=== PATIENT | male | born 1970 | race Two or more races ===

== ENCOUNTER → 2016-05-20 | Outpatient (CLI) | payer OTHER ==
--- NOTE | 2016-05-25 23:31 | ECWPNPC ---
PATIENT NAME: NIRANJAN HOPKINS : 1970 GENDER: MALE VISIT DATE: 05/20/2016 DISCHARGE DATE: 05/20/16 1058 VISIT LOCKED DATE TIME: PHYSICIAN: FAHAD VENEGAS RESOURCE: FAHAD VENEGAS REASON FOR APPOINTMENT 1. SHOULDER PAIN HISTORY OF PRESENT ILLNESS FALL RISK SCREENING: SCREENING :NO FALLS IN THE PAST YEAR 46 YEAR OLD MALE PATIENT WITH HISTORY OF CHRONIC LEFT SHOULDER PAIN. PATIENT DESCRIBES THE PAIN SHARP AND HAVING IT ALL THE TIME WITH A PAIN SCORE OF 4-8/10. PATIENT REPORTS THAT THE PAIN STARTED IN 2003 DISLOCATED SHOULDER WHILE MOVING SCARP METAL WHILE WORKING IN THE . MR. HOPKINS REPORTS HAVING PAIN IN THE WHOLE SHOULDER AREA AND DOWN THE ARM. PATIENT HAS TRIED PHYSICAL THERAPY NUMEROUS TIME AND STATES THAT IT DOES NOT AID PAIN RELIEF MUCH HE WOULD LIKE. MR. HOPKINS USES A TENNS UNIT TO AID IN PAIN RELIEF. CURRENTLY THE PATIENT IS ONLY USING ALEVE TO AID IN PAIN RELIEF. FLEXERIL AND SKELAXIN DOES NOT AID IN PAIN RELIEF. OXYCODONE DID AID IN PAIN RELIEF AND WOULD ONLY USE NEEDED AND WOULD USE BEING 0MG TO 40 MG DEPENDING ON THE AMOUNT OF PAIN RELIEF WHILE IN [facility]. MR. HOPKINS ALSO RECEIVED AN INJECTION FROM THE ORTHOPEDIC GROUP ON [facility] AND STATED THAT HE ONLY GOT RELIEF IN THE BICEP AREA AND NOTHING IN THE JOINT AREA. PATIENT EXPRESSED HE WOULD LIKE TO TRY OTHER OPTIONS BEFORE MOVING FORWARD WITH A SURGERY. PATIENT DENIES UNEXPLAINABLE WEIGHT LOSS, FEVER, CHILLS, NEW CHANGES ON HIS URINARY OR BOWEL CONTROL. PAIN SCREENING: PATIENT HAS A COMPLAINT OF ACUTE OR CHRONIC PAIN :YES CURRENT MEDICATIONS TAKING ALEVE 220 MG CAPSULE ORALLY , NOTES: TAKES 500MG UP TO 4 X DAILY TAKING ASPIRIN ADULT LOW STRENGTH 81 MG TABLET DELAYED RELEASE 1 TABLET ORALLY ONCE A DAY MEDICATION LIST REVIEWED AND RECONCILED WITH THE PATIENT PAST MEDICAL HISTORY NO MEDICAL HISTORY. ALLERGIES N.K.D.A. SURGICAL HISTORY PRK, EYES 2003 FAMILY HISTORY FATHER: MOTHER: ALIVE 1 SON(S) - HEALTHY. SOCIAL HISTORY GENERAL: TOBACCO USE ARE YOU A:NONSMOKER ALCOHOL SCREENING POINTS2 INTERPRETATIONNEGATIVE RECREATIONAL DRUG USE DRUG USE?NO CAFFEINE CAFFEINE USE?YES HOW OFTEN AND HOW MUCH? COFFEE ON A DAILY BASIS LEARNING BARRIERS / SPECIAL NEEDS BARRIERS TO LEARNING?NO HEARING IMPAIRED?NO LEARNING PREFERENCES?NO PAIN CLINIC PFS, CLERGY, PUBLIC HEALTH REFERRALS CLERGY REFERRAL NEEDED?NO WAS THE PROVIDER NOTIFIED OF ANY PERTINENT INFO?NO PFS REFERRAL NEEDED?NO PUBLIC HEALTH REFERRAL NEEDED?NO PATIENT: ____. ADVANCED DIRECTIVES HEALTH CARE PROXY?NO WOULD YOU LIKE MORE INFORMATION?NO HOSPITALIZATION/MAJOR DIAGNOSTIC PROCEDURE DENIES PAST HOSPITALIZATION REVIEW OF SYSTEMS CONSTITUTIONAL: ANY CHANGE IN YOUR MEDICAL CONDITION? NO . CHILLS NO . FEVER NO . INFECTION: DO YOU HAVE NEW INFECTIONS? NO . DO YOU HAVE HISTORY OF MRSA? NO . MUSCULOSKELETAL: ANY NEW PATTERNS OF PAIN OR NUMBNESS? NO . SYTEMIC LUPUS NO . GASTROENTEROLOGY: ANY NEW CHANGE IN BOWEL CONTROL? NO . BARRETTS ESOPHAGUS NO . CIRRHOSIS NO . HEPATITIS NO . LIVER FAILURE NO . ACID REFLUX NO . UNEXPLAINED WEIGHT LOSS NO . GENITOURINARY: ANY NEW CHANGE IN BLADDER CONTROL? NO . IS THERE A CHANCE YOU COULD BE ? NO . HEMATOLOGY/LYMPH: DO YOU TAKE ANY BLOOD THINNERS? (FOR EXAMPLE- COUMADIN, PLAVIX, AGGRENOX, PLATEL, PRADAXA, OR XARELTO) NO . WHEN WAS YOUR LAST DOSE? DATE: TIME: . LOW PLATELET COUNT NO . SICKLE CELL DISEASE NO . VON WILLIEBRANDS NO . FACTOR V LEIDEN NO . THALLASEMIA NO . ANEMIA NO . EASY BRUISING NO . NEUROLOGY: HAVE YOU FALLEN IN THE PAST 6 MONTHS? NO . ANY NEW EXTREMITY NUMBNESS OR WEAKNESS? NO . HEAD INJURY NO . DEMENTIA NO . CEREBRAL PALSY NO . MULTIPLE SCLEROSIS NO . DIZZINESS NO . HEADACHE NO . STROKES NO . VERTIGO NO . CARDIOLOGY: DO YOU HAVE A PACEMAKER OR DEFIBRILLATOR? NO . ANGINA NO . HEART ATTACK NO . HEART SURGERY NO . CONGESTIVE HEART FAILURE/FLUID OVERLOAD NO . CHEST PAIN NO . HIGH BLOOD PRESSURE NO . IRREGULAR HEART BEAT NO . RESPIRATORY: HAVE YOU BEEN SICK IN THE PAST WEEK? NO . FEVER NO . FLU LIKE SYMPTOMS? NO . CPAP NO . BYPAP NO . ASTHMA NO . EMPHYSEMA NO . CHRONIC LUNG DISEASES NO . SHORTNESS OF BREATH ON EXERTION NO . COUGH NO . SNORING NO . INTEGUMENTARY: DO YOU HAVE ANY RASHES OR OPEN SORES? NO . ALLERGIC/IMMUNO: ARE YOU ALLERGIC TO SHELLFISH OR IV DYE? NO . ANY NEW ALLERGIES? NO . PSYCHIATRIC: DO YOU HAVE THOUGHTS OF HURTING YOURSELF OR SOMEONE ELSE? NO . ARE YOU ABUSED, NEGLECTED, OR IN AN UNSAFE ENVIRONMENT? NO . ENDOCRINOLOGY: ARE YOU DIABETIC? NO . THYROID DISORDER NO . OTHER: DO YOU NEED ANY PRESCRIPTIONS? NO . IF YES, PLEASE LIST: ____ . ANY NEW PROBLEMS WITH YOUR MEDICATIONS? NO . WHEN DID YOU LAST EAT? ____ . WHEN DID YOU LAST DRINK? ____ . WHAT DID YOU LAST DRINK? ____ . NAME OF PERSON DRIVING YOU HOME? ____ . DO YOU HAVE ANY OTHER QUESTIONS OR CONCERNS NO . REVIEWED BY: PROVIDER: FAHAD VENEGAS MD . VITAL SIGNS WT 215.8 LBS, HT 77 IN, BMI 25.59 INDEX, BP 120/67 MM HG, HR 69 /MIN, RR 18 /MIN, TEMP 98.7 F, OXYGEN SAT % 100%, NA INITIALS SC09:15, REVIEWED BY: CM. EXAMINATION : PATIENT IS ALERT O X 3 AND COOPERATIVE. PATIENT ABLE TO ABDUCT RIGHT ARM AND LEFT ARM TO SHOULDER LEVEL. 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 TENDERNESS THROUGHOUT THE ENTIRE ROTATOR AREA INCLUDING THE BACK. MRI DONE ON 12/18/14 OF THE LEFT SHOULDER SHOWS A POSSIBLE BONY BANKART AND A CALCIFICATION OR MINERALIZTION WITHIN THE INFERIOR AXILLARY POUCH. ASSESSMENTS LEFT SHOULDER PAIN. TREATMENT OTHERS NOTES: WE DISCUSSED SEVERAL ISSUES WITH MR. HOPKINS'S PAIN MANAGEMENT CASE. AT THIS TIME THE PATIENT WILL CONTINUE TO USE ALEVE FOR PAIN MANAGEMENT. WE DISCUSSED WAYS TO AID IN PAIN RELIEF OVER THEN DOING THE SHOULDER SURGERY. WE BRIEFLY DISCUSSED THE POSSIBILITY OF IMPLANTING A SCS AND THE PATIENT LEFT WITH MATERIAL FROM [employer], [facility] [employer]. MR. HOPKINS WAS ADVISED TO SPEAK WITH HIS ORTHOPEDIC SURGEON ABOUT THE SCS WELL. PATIENT WILL RETURN TO THE CLINIC IN A FEW DAYS TO DISCUSS MEDICATION MANAGEMENT. I WOULD LIKE TO SPEAK WITH THE PATIENTS PRIMARY CARE BEFORE MOVING FORWARD WITH PRESCRIBING MEDICATIONS FOR THE PATIENT. , INSTRUCTIONS WERE GIVEN, QUESTIONS WERE ANSWERED, PATIENT REPORTS UNDERSTANDING AND AGREES WITH THE PLAN. I, LULU SOUSA, DOCUMENTED THE ABOVE INFORMATION ACTING A SCRIBE FOR DR. VENEGAS. I HAVE REVIEWED THE ABOVE DOCUMENT, WRITTEN BY LULU [facility] AND I VERIFY THAT IT IS ACCURATE. DEAR PATRICK RODRIGUEZ: THANK YOU FOR YOUR KIND REFERRAL OF MR. HOPKINS. YOU WANT TO DISCUSS HER CASE WITH ME PLEASE CALL ME AT THE PAIN CENTER AT [phone]. SINCERELY, FAHAD VENEGAS MD PAIN MEDICINE. PROCEDURE CODES G8427 DOC MEDS VERIFIED W/PT OR RE G8730 PAIN ASSESS POS TOOL F/U PLAN DOC FA211 ESTABILISHED PATIENT [facility] CHARGE DISPOSITION & COMMUNICATION FOLLOW UP 2 - 3 DAYS ELECTRONICALLY SIGNED BY FAHAD VENEGAS MD ON 05/25/2016 AT 09:17 PM EDT DISCLAIMER : THIS IS A VISIT SUMMARY EXTRACTED FROM THE [employer] CHART. IT IS NOT A COPY OF THE [employer] PROGRESS NOTE. MTDD
== END ==
LOC: M PAIN 08:40
PROVIDERS: ATTEND Anesthesiology
DX: G89.29 Other chronic pain (principal); M25.512 Pain in left shoulder; Z79.1 Long term (current) use of non-steroidal anti-inflammatories (NSAID); Z79.82 Long term (current) use of aspirin

== ENCOUNTER → 2016-05-21 | Outpatient (CLI) | payer OTHER ==
--- NOTE | 2016-06-01 23:08 | ECWPNPC ---
PATIENT NAME: NIRANJAN HOPKINS : 1970 GENDER: MALE VISIT DATE: 05/21/2016 DISCHARGE DATE: 05/21/16 1722 VISIT LOCKED DATE TIME: PHYSICIAN: FAHAD VENEGAS RESOURCE: FAHAD VENEGAS REASON FOR APPOINTMENT 1. SHOULDER PAIN HISTORY OF PRESENT ILLNESS HISTORY OF PRESENT ILLNESS: PAIN THE PATIENT DESCRIBES THE PAIN... 46 YEAR OLD MALE PATIENT WITH HISTORY OF CHRONIC LEFT SHOULDER PAIN. PATIENT DESCRIBES THE PAIN SHARP, SHOOTING, AND HAVING IT ALL THE TIME WITH A PAIN SCORE OF 3-8/10 ON TODAY'S VISIT. PATIENT REPORTS THAT THE PAIN STARTED IN 2003 DISLOCATED SHOULDER WHILE MOVING SCARP METAL WHILE WORKING IN THE . PATIENT REPORTS THAT HIS PAIN INCREASES HIS ACTIVITY LEVEL GOES UP. PATIENT REPORTS OF TAKING ALEVE TO TRY TO HELP WITH THE PAIN. PATIENT DENIES UNEXPLAINABLE WEIGHT LOSS, FEVER, CHILLS, NEW CHANGES ON HIS URINARY OR BOWEL CONTROL. FALL RISK SCREENING: SCREENING :NO FALLS IN THE PAST YEAR CURRENT MEDICATIONS TAKING ALEVE 220 MG CAPSULE ORALLY , NOTES: TAKES 500MG UP TO 4 X DAILY TAKING ASPIRIN ADULT LOW STRENGTH 81 MG TABLET DELAYED RELEASE 1 TABLET ORALLY ONCE A DAY MEDICATION LIST REVIEWED AND RECONCILED WITH THE PATIENT PAST MEDICAL HISTORY NO MEDICAL HISTORY. ALLERGIES N.K.D.A. SURGICAL HISTORY PRK, EYES 2002 FAMILY HISTORY FATHER: MOTHER: ALIVE 1 SON(S) - HEALTHY. SOCIAL HISTORY GENERAL: PAIN CLINIC PFS, CLERGY, PUBLIC HEALTH REFERRALS PFS REFERRAL NEEDED?NO CLERGY REFERRAL NEEDED?NO PUBLIC HEALTH REFERRAL NEEDED?NO WAS THE PROVIDER NOTIFIED OF ANY PERTINENT INFO?YES PATIENT: ____. HOSPITALIZATION/MAJOR DIAGNOSTIC PROCEDURE NO HOSPITALIZATION HISTORY. REVIEW OF SYSTEMS CONSTITUTIONAL: ANY CHANGE IN YOUR MEDICAL CONDITION? NO . CHILLS NO . FEVER NO . INFECTION: DO YOU HAVE NEW INFECTIONS? NO . DO YOU HAVE HISTORY OF MRSA? NO . MUSCULOSKELETAL: ANY NEW PATTERNS OF PAIN OR NUMBNESS? NO . GASTROENTEROLOGY: ANY NEW CHANGE IN BOWEL CONTROL? NO . GENITOURINARY: ANY NEW CHANGE IN BLADDER CONTROL? NO . IS THERE A CHANCE YOU COULD BE ? NO . HEMATOLOGY/LYMPH: DO YOU TAKE ANY BLOOD THINNERS? (FOR EXAMPLE- COUMADIN, PLAVIX, AGGRENOX, PLATEL, PRADAXA, OR XARELTO) NO . WHEN WAS YOUR LAST DOSE? DATE: TIME: . NEUROLOGY: HAVE YOU FALLEN IN THE PAST 6 MONTHS? NO . ANY NEW EXTREMITY NUMBNESS OR WEAKNESS? NO . CARDIOLOGY: DO YOU HAVE A PACEMAKER OR DEFIBRILLATOR? NO . RESPIRATORY: HAVE YOU BEEN SICK IN THE PAST WEEK? NO . FEVER NO . FLU LIKE SYMPTOMS? NO . COUGH NO . INTEGUMENTARY: DO YOU HAVE ANY RASHES OR OPEN SORES? NO . ALLERGIC/IMMUNO: ARE YOU ALLERGIC TO SHELLFISH OR IV DYE? NO . ANY NEW ALLERGIES? NO . PSYCHIATRIC: DO YOU HAVE THOUGHTS OF HURTING YOURSELF OR SOMEONE ELSE? NO . ARE YOU ABUSED, NEGLECTED, OR IN AN UNSAFE ENVIRONMENT? NO . ENDOCRINOLOGY: ARE YOU DIABETIC? NO . OTHER: DO YOU NEED ANY PRESCRIPTIONS? NO . IF YES, PLEASE LIST: ____ . ANY NEW PROBLEMS WITH YOUR MEDICATIONS? NO . WHEN DID YOU LAST EAT? ____ . WHEN DID YOU LAST DRINK? ____ . WHAT DID YOU LAST DRINK? ____ . NAME OF PERSON DRIVING YOU HOME? ____ . DO YOU HAVE ANY OTHER QUESTIONS OR CONCERNS NO . REVIEWED BY: PROVIDER: FAHAD VENEGAS MD . VITAL SIGNS WT 215.8 LBS, HT 77 IN, BMI 25.59 INDEX, BP 126/71 MM HG, HR 62 /MIN, RR 16 /MIN, TEMP 98.1 F, OXYGEN SAT % 99%, SAFE IN ENV? (Y/N) Y, NA INITIALS TL 1540, REVIEWED BY: CRISTINE. EXAMINATION : PATIENT IS ALERT O X 3 AND COOPERATIVE. PATIENT ABLE TO ABDUCT RIGHT ARM AND LEFT ARM TO SHOULDER LEVEL. 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 TENDERNESS THROUGHOUT THE ENTIRE ROTATOR AREA INCLUDING THE BACK. MRI DONE ON 12/18/14 OF THE LEFT SHOULDER SHOWS A POSSIBLE BONY BANKART AND A CALCIFICATION OR MINERALIZATION WITHIN THE INFERIOR AXILLARY POUCH. ASSESSMENTS PAIN IN LEFT SHOULDER - M25.512 (PRIMARY) PRIMARY OSTEOARTHRITIS, LEFT SHOULDER - M19.012, PER REFERRAL TREATMENT PAIN IN LEFT SHOULDER NOTES: WE DISCUSSED SEVERAL ISSUES WITH MR. HOPKINS'S PAIN MANAGEMENT CASE. I WILL HAVE THE PATIENT SIGN A NARCOTIC AGREEMENT TODAY. I WILL HAVE THE PATIENT START ON GABAPENTIN AND HYDROCODONE TODAY. DISCUSSED WITH THE PATIENT THAT HE NEEDS TO BRING HIS MEDICATIONS TO EVERY FOLLOW UP. I WILL ORDER A UTOX ON THE NEXT VISIT. INFORMED THE PATIENT THAT I NEED TO REACH AN AGREEMENT WITH HIS PRIMARY ABOUT MEDICATION MANAGEMENT, AND TO CONTACT HIS PRIMARY TO GIVE US A CALL. PATIENT WILL FOLLOW UP WITH ME IN 2 WEEKS. INSTRUCTIONS WERE GIVEN, QUESTIONS WERE ANSWERED, PATIENT REPORTS UNDERSTANDING AND AGREES WITH THE PLAN. I, CARMENZA BUCKLEY, DOCUMENTED THE ABOVE INFORMATION ACTING A SCRIBE FOR DR. VENEGAS. I HAVE REVIEWED THE ABOVE DOCUMENT, WRITTEN BY CARMENZA BUCKLEY SCRIBE AND I VERIFY THAT IT IS ACCURATE. OTHERS START GABAPENTIN CAPSULE, 300 MG, 1 CAPSULE, ORALLY, BEFORE BEDTIME FOR PAIN, 30 DAY(S), 30, REFILLS 1 START HYDROCODONE-ACETAMINOPHEN TABLET, 5-325 MG, 1 TABLET NEEDED, ORALLY, EVERY 6 HRS PRN FOR PAIN MDD2, 14 DAY(S), 25, REFILLS 0 PROCEDURE CODES FA211 ESTABILISHED PATIENT [facility] FACILITY CHARGE G8730 PAIN ASSESS POS TOOL F/U PLAN DOC G8427 DOC MEDS VERIFIED W/PT OR RE DISPOSITION & COMMUNICATION FOLLOW UP 2 WEEKS ELECTRONICALLY SIGNED BY FAHAD VENEGAS MD ON 06/01/2016 AT 05:39 PM EDT DISCLAIMER : THIS IS A VISIT SUMMARY EXTRACTED FROM THE [employer] CHART. IT IS NOT A COPY OF THE [employer] PROGRESS NOTE. JAZ
== END ==
LOC: M PAIN 15:20
PROVIDERS: ATTEND Anesthesiology
DX: Z09 Encounter for follow-up examination after completed treatment for conditions other than malignant neoplasm (principal); G89.29 Other chronic pain; M25.512 Pain in left shoulder; M19.012 Primary osteoarthritis, left shoulder; Z79.1 Long term (current) use of non-steroidal anti-inflammatories (NSAID); Z79.82 Long term (current) use of aspirin

== ENCOUNTER → 2016-08-01 | Outpatient (CLI) | payer OTHER ==
--- NOTE | 2016-08-08 23:48 | ECWPNPC ---
PATIENT NAME: NIRANJAN HOPKINS : 1970 GENDER: MALE VISIT DATE: 08/01/2016 DISCHARGE DATE: 08/01/16 1630 VISIT LOCKED DATE TIME: PHYSICIAN: FAHAD VENEGAS RESOURCE: FAHAD VENEGAS REASON FOR APPOINTMENT 1. BACK PAIN HISTORY OF PRESENT ILLNESS HISTORY OF PRESENT ILLNESS: PAIN THE PATIENT DESCRIBES THE PAIN... 46 YEAR OLD MALE PATIENT WITH HISTORY OF CHRONIC LEFT SHOULDER AND LOW BACK PAIN. PATIENT DESCRIBES THE PAIN SHARP, STABBING, THROBBING, SHOOTING, AND IT COMES AND GOES WITH A PAIN SCORE OF 3-5/10 ON TODAY'S VISIT. PATIENT REPORTS OF RADIATING PAIN DOWN THE FRONT OF HIS THIGHS FROM HIS BACK. PATIENT REPORTS OF BACK AND LEFT SHOULDER PAIN, BUT HIS BACK HURTS THE MOST TODAY. PATIENT STATES THAT HE IS NOT INTERESTED IN INJECTIONS AT THIS TIME. PATIENT DENIES UNEXPLAINABLE WEIGHT LOSS, FEVER, CHILLS, NEW CHANGES ON HIS URINARY OR BOWEL CONTROL. FALL RISK SCREENING: SCREENING :NO FALLS IN THE PAST YEAR CURRENT MEDICATIONS TAKING HYDROCODONE-ACETAMINOPHEN 5-325 MG TABLET 1 TABLET NEEDED ORALLY EVERY 6 HRS PRN FOR PAIN MDD2, NOTES: NOT WORKING TAKING ALEVE 220 MG CAPSULE ORALLY , NOTES: TAKES 500MG UP TO 4 X DAILY TAKING ASPIRIN ADULT LOW STRENGTH 81 MG TABLET DELAYED RELEASE 1 TABLET ORALLY ONCE A DAY NOT-TAKING GABAPENTIN 300 MG CAPSULE 1 CAPSULE ORALLY BEFORE BEDTIME FOR PAIN MEDICATION LIST REVIEWED AND RECONCILED WITH THE PATIENT PAST MEDICAL HISTORY NONE ALLERGIES N.K.D.A. REVIEW OF SYSTEMS REVIEWED BY: PROVIDER: . CONSTITUTIONAL: ANY CHANGE IN YOUR MEDICAL CONDITION? NO . CHILLS NO . FEVER NO . INFECTION: DO YOU HAVE NEW INFECTIONS? NO . DO YOU HAVE HISTORY OF MRSA? NO . MUSCULOSKELETAL: ANY NEW PATTERNS OF PAIN OR NUMBNESS? NO . GASTROENTEROLOGY: ANY NEW CHANGE IN BOWEL CONTROL? NO . GENITOURINARY: ANY NEW CHANGE IN BLADDER CONTROL? NO . IS THERE A CHANCE YOU COULD BE ? NO . HEMATOLOGY/LYMPH: DO YOU TAKE ANY BLOOD THINNERS? (FOR EXAMPLE- COUMADIN, PLAVIX, AGGRENOX, PLATEL, PRADAXA, OR XARELTO) NO . WHEN WAS YOUR LAST DOSE? DATE: TIME: . NEUROLOGY: HAVE YOU FALLEN IN THE PAST 6 MONTHS? NO . ANY NEW EXTREMITY NUMBNESS OR WEAKNESS? NO . CARDIOLOGY: DO YOU HAVE A PACEMAKER OR DEFIBRILLATOR? NO . RESPIRATORY: HAVE YOU BEEN SICK IN THE PAST WEEK? NO . FEVER NO . FLU LIKE SYMPTOMS? NO . COUGH NO . INTEGUMENTARY: DO YOU HAVE ANY RASHES OR OPEN SORES? NO . ALLERGIC/IMMUNO: ARE YOU ALLERGIC TO SHELLFISH OR IV DYE? NO . ANY NEW ALLERGIES? NO . PSYCHIATRIC: DO YOU HAVE THOUGHTS OF HURTING YOURSELF OR SOMEONE ELSE? NO . ARE YOU ABUSED, NEGLECTED, OR IN AN UNSAFE ENVIRONMENT? NO . ENDOCRINOLOGY: ARE YOU DIABETIC? NO . OTHER: DO YOU NEED ANY PRESCRIPTIONS? NO . IF YES, PLEASE LIST: ____ . ANY NEW PROBLEMS WITH YOUR MEDICATIONS? NO . WHEN DID YOU LAST EAT? ____ . WHEN DID YOU LAST DRINK? ____ . WHAT DID YOU LAST DRINK? ____ . NAME OF PERSON DRIVING YOU HOME? ____ . DO YOU HAVE ANY OTHER QUESTIONS OR CONCERNS NO . VITAL SIGNS WT 220.4 LBS, HT 77 IN, BMI 26.13 INDEX, BP 144/70 MM HG, HR 65 /MIN, RR 16 /MIN, TEMP 98.7 F, OXYGEN SAT % 96%, REVIEWED BY: KG. EXAMINATION : PATIENT IS ALERT O X 3 AND COOPERATIVE. THERE IS TENDERNESS IN THE LOW BACK PARASPINAL MUSCLE GROUP. PATIENT'S LEFT LEG IS WEAKER AT FLEXION AND EXTENSION COMPARED TO THE RIGHT LEG. MRI OF THE LUMBAR SPINE DONE ON 05-02-2016 SHOWS FACET ARTHROPATHY CHANGES AND MILD STENOSIS AT MULTIPLE LEVELS, AND A BULGING DISC AT L4-L5 AND L5-S1. ASSESSMENTS LOW BACK PAIN - M54.5 (PRIMARY) TREATMENT LOW BACK PAIN NOTES: WE DISCUSSED SEVERAL ISSUES WITH MR. HOPKINS'S PAIN MANAGEMENT CASE. AT THIS TIME I WILL HAVE THE PATIENT START ON CYMBALTA AND CODEINE SULFATE. I DISCUSSED WITH THE PATIENT THAT HE IS A GOOD CANDIDATE FOR A LUMBAR EPIDURAL. PATIENT STATES THAT HE IS NOT INTERESTED IN INJECTIONS AT THIS TIME AND WOULD LIKE TO PROCEED WITH MEDICATION MANAGEMENT. PATIENT WILL FOLLOW UP WITH ME IN 3 WEEKS. INSTRUCTIONS WERE GIVEN, QUESTIONS WERE ANSWERED, PATIENT REPORTS UNDERSTANDING AND AGREES WITH THE PLAN. I, CARMENZA BUCKLEY, DOCUMENTED THE ABOVE INFORMATION ACTING A SCRIBE FOR DR. VENEGAS. I HAVE REVIEWED THE ABOVE DOCUMENT, WRITTEN BY CARMENZA BOSTON AND I VERIFY THAT IT IS ACCURATE. OTHERS START CYMBALTA CAPSULE DELAYED RELEASE PARTICLES, 30 MG, 1 CAPSULE, ORALLY WITH FOOD, TWICE A DAY, 30 DAY(S), 60, REFILLS 1 START CODEINE SULFATE TABLET, 30 MG, 1 TABLET NEEDED, ORALLY, EVERY 4 HRS FOR PAIN MDD3, 30 DAY(S), 30, REFILLS 0 PROCEDURE CODES FA211 ESTABILISHED PATIENT LOCATED WITHIN [facility] CHARGE G8730 PAIN ASSESS POS TOOL F/U PLAN DOC G8427 DOC MEDS VERIFIED W/PT OR RE DISPOSITION & COMMUNICATION FOLLOW UP 3 WEEKS ELECTRONICALLY SIGNED BY FAHAD VENEGAS MD ON 08/08/2016 AT 12:41 PM EDT DISCLAIMER : THIS IS A VISIT SUMMARY EXTRACTED FROM THE [employer] CHART. IT IS NOT A COPY OF THE [employer] PROGRESS NOTE. MTDD
== END ==
LOC: M PAIN 14:40
PROVIDERS: ATTEND Anesthesiology
DX: G89.29 Other chronic pain (principal); M54.5 Low back pain; M25.512 Pain in left shoulder; Z79.891 Long term (current) use of opiate analgesic; Z79.899 Other long term (current) drug therapy; Z79.82 Long term (current) use of aspirin

== ENCOUNTER → 2016-08-22 | Outpatient (CLI) | payer OTHER ==
--- NOTE | 2016-09-03 03:24 | ECWPNPC ---
PATIENT NAME: NIRANJAN HOPKINS : 1970 GENDER: MALE VISIT DATE: 08/22/2016 DISCHARGE DATE: 08/22/16 1132 VISIT LOCKED DATE TIME: PHYSICIAN: MEL ALEXANDRE RESOURCE: MEL ALEXANDRE REASON FOR APPOINTMENT 1. BACK AND SHOULDER CURRENT MEDICATIONS TAKING HYDROCODONE-ACETAMINOPHEN 5-325 MG TABLET 1 TABLET NEEDED ORALLY EVERY 6 HRS PRN FOR PAIN MDD2, NOTES: NOT WORKING TAKING ASPIRIN ADULT LOW STRENGTH 81 MG TABLET DELAYED RELEASE 1 TABLET ORALLY ONCE A DAY TAKING CODEINE SULFATE 30 MG TABLET 1 TABLET NEEDED ORALLY EVERY 4 HRS FOR PAIN MDD3 NOT-TAKING ALEVE 220 MG CAPSULE ORALLY , NOTES: TAKES 500MG UP TO 4 X DAILY NOT-TAKING CYMBALTA 30 MG CAPSULE DELAYED RELEASE PARTICLES 1 CAPSULE ORALLY WITH FOOD TWICE A DAY NOT-TAKING GABAPENTIN 300 MG CAPSULE 1 CAPSULE ORALLY BEFORE BEDTIME FOR PAIN MEDICATION LIST REVIEWED AND RECONCILED WITH THE PATIENT PAST MEDICAL HISTORY NONE DISLOCATION OF LEFT SHOULDER 2003 ALLERGIES N.K.D.A. SURGICAL HISTORY PRK, EYES 2002 FAMILY HISTORY FATHER: MOTHER: ALIVE 1 SON(S) - HEALTHY. VITAL SIGNS WT 310 LBS, HT 77 IN, BMI 36.76 INDEX, BP 129/67 MM HG, HR 65 /MIN, RR 16 /MIN, TEMP 98.8 F, OXYGEN SAT % 96%, NA INITIALS AW 1047. EXAMINATION GENERAL EXAMINATION: GENERAL APPEARANCE:COMFORTABLE,AWAKE AND ALERT. PSYCHORIENTED TO PERSON, ORIENTED TO PLACE, ORIENTED TO TIME. LUNGS:LUNG PETERS ARE CLEAR TO AUSCULTATION BILATERALLY. GOOD MOVEMENT OF AIR. HEART:S1, S2 IN A REGULAR RATE AND RHYTHM. NO SIGNIFICANT MURMURS, RUBS OR GALLOPS NOTED. LUMBAR SPINE/LOWER BACK: PALPATION:PARASPINAL TENDERNESS, VERTEBRAL SPINE TENDERNESS. MOTOR SYSTEM:SLIGHTLY WEAKER R>L. SENSORY EXAM:NORMAL BILATERAL LE. REFLEXES:2/4 AND SYMMETRIC BLE. ASSESSMENTS LOW BACK PAIN - M54.5 (PRIMARY) PRIMARY OSTEOARTHRITIS, LEFT SHOULDER - M19.012, PER REFERRAL TREATMENT LOW BACK PAIN STOP HYDROCODONE-ACETAMINOPHEN TABLET, 5-325 MG, 1 TABLET NEEDED, ORALLY, EVERY 6 HRS PRN FOR PAIN MDD2, NOTES: NOT WORKING STOP CODEINE SULFATE TABLET, 30 MG, 1 TABLET NEEDED, ORALLY, EVERY 4 HRS FOR PAIN MDD3 START OXYCODONE HCL TABLET, 5 MG, 1/2TAB-1TAB, ORALLY, Q6H PRN MDD4, 30 DAY(S), 120, REFILLS 0 PROCEDURE CODES FA211 ESTABILISHED PATIENT [facility] CHARGE DISPOSITION & COMMUNICATION FOLLOW UP 4 WEEKS ELECTRONICALLY SIGNED BY KATHARINE WHLAEN ON 09/02/2016 AT 03:48 PM EDT DISCLAIMER : THIS IS A VISIT SUMMARY EXTRACTED FROM THE [employer] CHART. IT IS NOT A COPY OF THE [employer] PROGRESS NOTE. MTDD
== END ==
LOC: M PAIN 10:00
PROVIDERS: ATTEND Nurse Practitioner Family
DX: G89.29 Other chronic pain (principal); M54.5 Low back pain; M19.012 Primary osteoarthritis, left shoulder; Z79.82 Long term (current) use of aspirin; Z79.891 Long term (current) use of opiate analgesic; Z79.899 Other long term (current) drug therapy

== ENCOUNTER → 2016-12-11 | Outpatient (CLI) | payer OTHER ==
--- NOTE | 2016-12-28 23:44 | ECWPNPC ---
PATIENT NAME: NIRANJAN HOPKINS : 1970 GENDER: MALE VISIT DATE: 12/11/2016 DISCHARGE DATE: 12/11/161748 VISIT LOCKED DATE TIME: PHYSICIAN: FAHAD VENEGAS RESOURCE: FAHAD VENEGAS REASON FOR APPOINTMENT 1. SHOULDER PAIN HISTORY OF PRESENT ILLNESS GENERAL: 46 YEAR OLD MALE PATIENT WITH HISTORY OF CHRONIC LEFT SHOULDER AND LOW BACK PAIN. PATIENT DESCRIBES THE PAIN SHARP, STABBING, THROBBING, SHOOTING, AND IT COMES AND GOES WITH A PAIN SCORE OF 3-8/10 ON TODAY'S VISIT. PATIENT REPORTS OF RADIATING PAIN DOWN THE FRONT OF HIS THIGHS FROM HIS BACK. PATIENT REPORTS OF BACK AND LEFT SHOULDER PAIN, BUT HIS BACK HURTS THE MOST TODAY. PATIENT STATES THAT HE IS NOT INTERESTED IN INJECTIONS AT THIS TIME. PATIENT DENIES UNEXPLAINABLE WEIGHT LOSS, FEVER, CHILLS, NEW CHANGES ON HIS URINARY OR BOWEL CONTROL. CURRENT MEDICATIONS TAKING OXYCODONE HCL 5 MG TABLET 1/2TAB-1TAB ORALLY Q6H PRN MDD4 NOT-TAKING ALEVE 220 MG CAPSULE ORALLY , NOTES: TAKES 500MG UP TO 4 X DAILY NOT-TAKING CYMBALTA 30 MG CAPSULE DELAYED RELEASE PARTICLES 1 CAPSULE ORALLY WITH FOOD TWICE A DAY NOT-TAKING GABAPENTIN 300 MG CAPSULE 1 CAPSULE ORALLY BEFORE BEDTIME FOR PAIN NOT-TAKING ASPIRIN ADULT LOW STRENGTH 81 MG TABLET DELAYED RELEASE 1 TABLET ORALLY ONCE A DAY MEDICATION LIST REVIEWED AND RECONCILED WITH THE PATIENT PAST MEDICAL HISTORY NONE DISLOCATION OF LEFT SHOULDER 2004 ALLERGIES N.K.D.A. FAMILY HISTORY FATHER: 78 YRS MOTHER: ALIVE 77 YRS 1 SON(S) - HEALTHY. SOCIAL HISTORY GENERAL: TOBACCO USE ARE YOU A:NONSMOKER CAFFEINE CAFFEINE USE?YES HOW OFTEN AND HOW MUCH? 3 CUPS PER DAY LEARNING BARRIERS / SPECIAL NEEDS CHANGE FROM LAST VISIT?NO BARRIERS TO LEARNING?NO READINESS TO LEARN?YES PAIN CLINIC PFS, CLERGY, PUBLIC HEALTH REFERRALS PFS REFERRAL NEEDED?NO CLERGY REFERRAL NEEDED?NO PUBLIC HEALTH REFERRAL NEEDED?NO WAS THE PROVIDER NOTIFIED OF ANY PERTINENT INFO?YES HAS THE PATIENT BEEN EDUCATED REGARDING HIS/HER PLAN OF CARE?YES HAS THE PATIENT BEEN EDUCATED REGARDING PAIN, THE RISK FOR PAIN, THE IMPORTANCE OF EFFECTIVE PAIN MANAGEMENT, AND THE PAIN ASSESSMENT PROCESS?YES REVIEWED BY: CRISTINE. PATIENT: ____. VITAL SIGNS WT 204.4 LBS, HT 77 IN, BMI 24.24 INDEX, BP 133/64 MM HG, HR 67 /MIN, RR 18 /MIN, TEMP 97.4 F, OXYGEN SAT % 100%, SAFE IN ENV? (Y/N) Y, NA INITIALS ME 15:58, REVIEWED BY: CRISTINE. EXAMINATION GENERAL: PATIENT IS ALERT O X 3 AND COOPERATIVE. THERE IS TENDERNESS IN THE LOW BACK PARASPINAL MUSCLE GROUP. PATIENT'S LEFT LEG IS WEAKER AT FLEXION AND EXTENSION COMPARED TO THE RIGHT LEG. MRI OF THE LUMBAR SPINE DONE ON 05-02-2016 SHOWS FACET ARTHROPATHY CHANGES AND MILD STENOSIS AT MULTIPLE LEVELS, AND A BULGING DISC AT L4-L5 AND L5-S1. ASSESSMENTS PAIN IN LEFT SHOULDER - M25.512 (PRIMARY) LOW BACK PAIN - M54.5 OTHER CHRONIC PAIN - G89.29 TREATMENT PAIN IN LEFT SHOULDER NOTES: WE DISCUSSED SEVERAL ISSUES WITH MR. HOPKINS'S PAIN MANAGEMENT CASE. PATIENT WILL CONTINUE TO USE OXYCODONE FOR THE SOMATIC PAIN. PATIENT DENIES ABUSE OF ANY MEDICATION, DENIES USE OF ILLEGAL SUBSTACNES, AND STATES THAT HE IS ONLY USING THE MEDICATION FOR PAIN MANAGEMENT. PATIENT WILL PERFORM A URINE TOXICOLOGY REPORT TODAY. AT THIS TIME THE PATIENT DOES NOT WANT TO MOVE FORWARD WITH INTERVENTIONS. MR. HOPKINS WILL RETURN TO THE CLINIC IN 3 MONTHS. INSTRUCTIONS WERE GIVEN, QUESTIONS WERE ANSWERED, PATIENT REPORTS UNDERSTANDING AND AGREES WITH THE PLAN. I, LULU SOUSA, DOCUMENTED THE ABOVE INFORMATION ACTING A SCRIBE FOR DR. VENEGAS. I HAVE REVIEWED THE ABOVE DOCUMENT, WRITTEN BY LULU BOSTON AND I VERIFY THAT IT IS ACCURATE. LOW BACK PAIN REFILL OXYCODONE HCL TABLET, 5 MG, 1/2TAB-1TAB, ORALLY, Q6H PRN MDD2, 30 DAY(S), 50, REFILLS 0 PROCEDURE CODES FA211 ESTABILISHED PATIENT [facility] FACILITY CHARGE [id number] DOC MEDS VERIFIED W/PT OR RE E4408 PAIN ASSESS POS TOOL F/U PLAN DOC DISPOSITION & COMMUNICATION FOLLOW UP 3 WEEKS ELECTRONICALLY SIGNED BY FAHAD VENEGAS MD ON 12/28/2016 AT 09:20 PM EST DISCLAIMER : THIS IS A VISIT SUMMARY EXTRACTED FROM THE [facility] CHART. IT IS NOT A COPY OF THE [facility] PROGRESS NOTE. JAZ
== END ==
LOC: M PAIN 15:30
PROVIDERS: ATTEND Anesthesiology
DX: M25.512 Pain in left shoulder (principal); M54.5 Low back pain; G89.29 Other chronic pain; Z79.82 Long term (current) use of aspirin; Z79.891 Long term (current) use of opiate analgesic; Z79.899 Other long term (current) drug therapy

== ENCOUNTER → 2017-02-03 | Outpatient (CLI) | payer OTHER | LOC: M PAIN 09:45 | DX: G89.29 Other chronic pain (principal); M54.5 Low back pain; M19.012 Primary osteoarthritis, left shoulder; Z79.891 Long term (current) use of opiate analgesic | CPT/HCPCS: G0463 ==

== ENCOUNTER → 2017-05-01 | Outpatient (CLI) | payer OTHER ==
[2017-05-01 13:33] LABS: PSA SCREENING 1.97 NG/ML (< 4.0)
== END ==
LOC: M SMT 09:51
DX: N40.2 Nodular prostate without lower urinary tract symptoms (principal)
CPT/HCPCS: G0103

== ENCOUNTER → 2017-05-01 | Outpatient (REF) | payer OTHER ==
[2017-05-01 13:24] LABS: APPEARANCE, URINE CLEAR (CLEAR); BACTERIA, URINE AUTO NEGATIVE (NEGATIVE); BILIRUBIN, URINE AUTO NEGATIVE (NEGATIVE); BLOOD, URINE BLOOD NEGATIVE (NEGATIVE); COLOR, URINE YELLOW (YELLOW); GLUCOSE, URINE (UA) AUTO NEGATIVE (NEGATIVE); KETONE, URINE AUTO NEGATIVE (NEGATIVE); LEUKOCYTE ESTERASE, URINE AUTO NEGATIVE (NEGATIVE); NITRITE, URINE AUTO NEGATIVE (NEGATIVE); PROTEIN, URINE AUTO NEGATIVE (NEGATIVE); RBC, URINE AUTO 1 /HPF (0-3); SPECIFIC GRAVITY URINE AUTO 1.004 (1.002-1.035); SQUAMOUS EPITHELIAL CELL UR AU 0 /HPF (0-6); UROBILINOGEN, URINE AUTO 0.2 mg/dL (0.0-2.0); WBC, URINE AUTO 2 /HPF (0-3)
== END ==
LOC: M SMT 12:54
DX: R35.0 Frequency of micturition (principal)
CPT/HCPCS: 81001

== ENCOUNTER → 2020-01-24 | Outpatient (CLI) | payer SELFPAY | LOC: M LABSMTC 13:36 | PROVIDERS: ATTEND Pediatrics | DX: Z11.59 Encounter for screening for other viral diseases (principal) ==

== ENCOUNTER → 2023-07-10 | Outpatient (CLI) | payer OTHER | LOC: M OUTALCOH 08:24 | PROVIDERS: ATTEND Psychiatry & Neurology Psychiatry | DX: F10.10 Alcohol abuse, uncomplicated (principal) ==

== ENCOUNTER 2023-08-12 13:00 | Outpatient (RCR) | payer OTHER | END 2023-08-16 | LOC: M OUTALCOH 13:00 | PROVIDERS: ATTEND Psychiatry & Neurology Psychiatry | DX: F10.10 Alcohol abuse, uncomplicated (principal) ==

== ENCOUNTER → 2023-09-16 | Outpatient (RCR) | payer OTHER | LOC: M OUTALCOH 08-19 16:04 | PROVIDERS: ATTEND Psychiatry & Neurology Psychiatry | DX: F10.10 Alcohol abuse, uncomplicated (principal) ==

== ENCOUNTER 2023-10-14 12:58 | Outpatient (RCR) | payer OTHER | END 2023-10-17 | LOC: M OUTALCOH 12:58 | PROVIDERS: ATTEND Psychiatry & Neurology Psychiatry | DX: F10.10 Alcohol abuse, uncomplicated (principal) ==

== ENCOUNTER 2023-10-14 13:00 | Outpatient (RCR) | payer OTHER | END 2023-10-17 | LOC: M OUTALCOH 13:00 | PROVIDERS: ATTEND Psychiatry & Neurology Psychiatry | DX: F10.10 Alcohol abuse, uncomplicated (principal) ==

== ENCOUNTER → 2024-10-14 | Outpatient (CLI) | payer OTHER ==
[~2024-10-14] MED LIST: PROHANCE 279.3MG/ML 15ML VIAL As Ordered ONE; PROHANCE 279.3MG/ML 5ML VIAL As Ordered ONE
== END ==
LOC: M RAD 09:30
PROVIDERS: ATTEND Nurse Practitioner Family
DX: R97.20 Elevated prostate specific antigen [PSA] (principal); N40.0 Benign prostatic hyperplasia without lower urinary tract symptoms
CPT/HCPCS: 72197; A9576